=== PATIENT | female | born 1990 | race Caucasian/White ===

== ENCOUNTER 2021-08-01 13:13 | Emergency (ER) | payer MEDICAID, SELFPAY ==
[2021-08-01 13:14] VITALS: BP 140/87; PULSE 86; RESP 16; TEMP 35.7; O2SAT 97; BMI 32.1
--- NOTE | 2021-08-01 14:25 | CT_ITS ---
EXAM: CT ABDOMEN AND PELVIS WITH INTRAVENOUS CONTRAST CLINICAL INDICATION: Bloody stool today, cramping TECHNIQUE: Helically acquired images were obtained of the abdomen and pelvis with intravenous contrast. This CT exam was performed using one or more of the following dose reduction techniques: automated exposure control, adjustment of the mA and/or kV according to patient size, and/or use of iterative reconstruction technique. This report was created using [email or web address] report generation technology. Oral contrast was administered. Coronal and sagittal reformatted images were created and reviewed. CONTRAST: 100 mL Isovue-300 COMPARISON: None. FINDINGS: LOWER THORAX: Unremarkable. Lung bases are clear. No cardiomegaly. No significant pericardial effusion. ABDOMEN: LIVER: Unremarkable. Homogeneous. No focal mass. GALLBLADDER AND BILE DUCTS: Gallbladder is contracted. No calcified gallstones. No gallbladder distention or wall edema. No intra- or extrahepatic biliary ductal dilation. PANCREAS: Unremarkable. No focal cystic or solid mass. SPLEEN: Unremarkable. Normal size without focal cystic or solid mass. ADRENALS: Unremarkable. No nodules. KIDNEYS AND URETERS: Unremarkable. Normal renal size and position. No hydronephrosis. STOMACH AND BOWEL: Unremarkable. No stomach or bowel distention. No focal inflammatory change. PELVIS: APPENDIX: No evidence of acute appendicitis. BLADDER: Unremarkable. REPRODUCTIVE: Fluid within the endometrial canal. ABDOMEN and PELVIS: INTRAPERITONEAL SPACE: Unremarkable. No ascites or other fluid collection. No free air. BONES/JOINTS: Unremarkable. No suspicious lytic or blastic abnormality. SOFT TISSUES: Small fat-containing supraumbilical hernia. VASCULATURE: Unremarkable. Abdominal aorta is non-dilated. LYMPH NODES: Unremarkable. No enlarged lymph nodes. CT/Abdomen/Pelvis WITH Contrast IMPRESSION: No acute inflammatory process or bowel obstruction. No large or small bowel wall thickening. Electronically Signed: Prem Aponte MD ([place]) at 16:18 EDT , Service support ,
--- NOTE | 2021-08-01 14:26 | EDS_ITS ---
HPI History of Present Illness Chief Complaint: GI Bleed Informant: patient Onset/Context/Timing Onset: Today Current Severity: Mild Maximum Severity: Mild Narrative Narrative: Patient presents with 1 month history of diarrhea. She developed diarrhea as well as cold symptoms and was seen at urgent care. She did negative Covid test was placed on an antibiotic. She continues to have diarrhea and today has noted blood in her stool. She has had abdominal cramping. No fever or chills. No urinary symptoms. PFSH PFSH Medical History no medical history no medical history Home Medications ferrous sulfate [Iron] 01/21/17 [History Last Taken 01/20/17 08:00] vit no.[id number] [ Tablet] 01/21/17 [History Last Taken 01/20/17 08:00] naproxen 250 - 500 mg PO Q8H PRN PRN #30 tablet 01/22/17 [Rx Last Taken Unknown] Allergy/AdvReac Type Severity Reaction Status Date / Time No Known Allergies Allergy Verified 08/01/21 13:19 Surgical History no surgical history Social History Smoking Status: Current every day smoker tobacco type: cigarettes ROS ROS ED Constitutional Constitutional ED: Denies chills or fever(s) Eyes Eyes: Denies change in vision ENT ENT ED: Denies sore throat Cardiovascular Cardiovascular: Denies chest pain Respiratory/Chest Respiratory/Chest: Denies cough or dyspnea Gastrointestinal Gastrointestinal: Reports abdominal pain and diarrhea; Denies nausea or vomiting Genitourinary Genitourinary ED: Denies dysuria Musculoskeletal Musculoskeletal: Denies back pain Integumentary Denies rash Neurologic Neurologic: Denies headache(s) or weakness Allergic/Immunologic Allergic/Immunologic ED: Denies urticaria EXAM Physical Exam Const Vital Signs: 08/01/21 13:14 08/01/21 16:03 Temperature 96.2 F L Temperature Source Temporal Pulse Rate 86 Respiratory Rate 16 16 Blood Pressure 140/87 H Blood Pressure Mean 104 Pulse Ox 97 Oxygen Delivery Method Room Air Positive well nourished and well developed General Appearance ED: well developed HEENT Reports normocephalic and head/scalp atraumatic Eyes PERRL and EOMs intact bilaterally Neck supple Chest Wall inspection of chest normal and palpation of chest normal Resp normal respiratory effort and clear to auscultation bilaterally Cardio regular rate and regular rhythm GI non-tender Auscultation: hypoactive bowel sounds Palpation: soft Extremity normal to inspection Neuro oriented x3 and no sensory deficits noted Sensorium / Orientation: alert Motor Exam: strength 5/5 throughout Psych mental status grossly normal Skin no rashes or lesions noted MDM MDM MDM Narrative Medical decision making narrative: Lab work and CT scan of the abdomen pelvis ordered. Lab Data Attestation: I reviewed the patient's lab results. Labs: Laboratory Results - last 24 hr 08/01/21 08/01/21 08/01/21 14:22 14:22 14:22 WBC 10.2 RBC 5.19 Hgb 12.8 Hct 41.2 MCV 79.4 L MCH 24.7 L MCHC 31.1 L RDW Std Deviation 44.4 H RDW Coeff of Jessy 15.5 H Plt Count 452 H MPV 10.3 Immature Gran % (Auto) 0.300 Neut % (Auto) 68.4 Lymph % (Auto) 24.9 [place] % (Auto) 5.3 Eos % (Auto) 0.8 Baso % (Auto) 0.3 Absolute Neuts (auto) 7.0 Absolute Lymphs (auto) 2.53 Nucleated RBC % 0 Sodium 138 Potassium 3.7 Chloride 107 Carbon Dioxide 25.0 Anion Gap 6 BUN 12 Creatinine 0.95 Estim Creat Clear Calc 66.62 Est GFR (MDRD) Af Amer 87 Est GFR (MDRD) Non-Af 72 BUN/Creatinine Ratio 12.6 Glucose 119 H Calcium 9.4 Total Bilirubin 0.30 Direct Bilirubin 0.05 AST 21 ALT 23 Alkaline Phosphatase 66 Total Protein 7.7 Albumin 3.6 Globulin 4.1 Serum , Qual NEGATIVE Radiography Diagnostic Testing: Clinical Impression(s) from Imaging Studies Abdomen/Pelvis CT 08/01/21 14:25 IMPRESSION: No acute inflammatory process or bowel obstruction. No large or small bowel wall thickening. Electronically Signed: Prem Aponte MD ([place]) at 16:18 EDT , Service support , Treatment and Re-Evaluation Comments:: Lab work reviewed with the patient. Labs are unremarkable. CT scan reveals no acute process. Patient did have stool sample while here and this was sent for testing. We will call her if any of these test results require further treatment. I did recommend taking probiotic. She will refer to [facility] for follow-up. Discharge Plan Triage Chief Complaint: GI Bleed ED Provider: Giulia Ayers Dx/Rx/DC Orders Clinical Impression: Diarrhea Instructions: ED Diarrhea, Unknown Cause Prescriptions: No Action vit no.[id number] [ Vitamin] 1 EACH tablet RF: 0 ferrous sulfate [Iron (ferrous sulfate)] 325 MG tablet RF: 0 naproxen 250 MG tablet 250 - 500 mg PO Q8H PRN PRN (Reason: MILD PAIN) Qty: 30 RF: 0 Primary Care Provider: Care Physician,No Primary Referrals: Warner Muñoz DO [STAFF PHYSICIAN] - As soon as possible Care Physician,No Primary [Primary Care Provider] - Disposition Disposition: Home, Self Care
[2021-08-01 14:34] LABS: Absolute Lymphocyte Count 2.53 X10^3/uL (0.83-4.51); Basophil# 0.03 X10^3/uL; Basophil% 0.3 % (0-1); Eosinophil# 0.08 X10^3/uL; Eosinophils% 0.8 % (0-5); Hematocrit 41.2 % (37-47); Hemoglobin 12.8 g/dL (12.0-15.0); Lymphocyte # 2.53 X10^3/ul (0.83-4.51); Lymphocyte % 24.9 % (19-41); Mean Corp Hgb Conc 31.1 g/dL (32-36); Mean Corpuscular Hgb 24.7 pg (27.0-32.0); Mean Corpuscular Volume 79.4 fL (81-99); Mean Platelet Vol. 10.3 fl (6.2-12.0); Monocyte# 0.54 X10^3/uL; Monocyte% 5.3 % (0-10); NRBC Flagged by Analyzer 0 % (0-5); Neutrophil # 6.95 X10^3/uL (2.7-7.7); Neutrophil % 68.4 % (47-70); Platelet Count 452 K/mm3 (150-450); RBC Distribution Width CV 15.5 % (11.6-14.6); RBC Distribution Width SD 44.4 fl (35.1-43.9); Red Blood Count 5.19 M/mm3 (4.2-5.4); White Blood Count 10.2 K/mm3 (4.4-11.0)
[2021-08-01] MEDS: 0.9% Normal Saline 1,000 ML 150 ML IV (14:35)
[2021-08-01 14:43] LABS: Internal QC Validated? YES +Cl - CLEAR BKGD; Pregnancy, Serum, hCG Quali. NEGATIVE Negative
[2021-08-01 14:51] LABS: AST(SGOT) 21 U/L (15-37); Alanine Aminotransfer ALT/SGPT 23 U/L (13-56); Albumin, Serum 3.6 g/dL (3.2-5.0); Alkaline Phosphatase 66 U/L (45-117); Anion Gap 6 (5-15); BUN 12 mg/dL (7-18); BUN/Creat Ratio 12.6 RATIO (10-20); Bilirubin, Direct 0.05 mg/dL (0.00-0.30); Calcium,Total 9.4 mg/dL (8.5-10.1); Chloride 107 mmol/L (98-107); Creatinine, Serum 0.95 mg/dL (0.55-1.02); EST Glomerular Filtration Rate 72 mL/min (>60); Est Glom Filt Rate - Afr Amer 87 mL/min (>60); Estimated Creatinine Clearance 66.62 ml/min; Globulin 4.1 g/dL (2.2-4.2); Glucose 119 mg/dL (74-106); Potassium 3.7 mmol/L (3.5-5.1); Protein, Total 7.7 g/dL (6.4-8.2); Sodium Level 138 mmol/L (136-145)
[2021-08-01 16:03] VITALS: RESP 16
[2021-08-01 17:30] VITALS: BP 123/74; PULSE 81; RESP 16; O2SAT 99
--- NOTE | 2021-08-01 17:31 | ED.RN ---
THIS NURSE REVIEWED D/C INSTRUCTIONS WITH PT AND VISITOR. PT VERBALIZED UNDERSTANDING OF INSTRUCTIONS. IV D/C. IV CATHETER INTACT. PT TOLERATED WELL. PT DENIES FURTHER NEEDS OR QUESTIONS AT THIS TIME.
== END 2021-08-01 17:32 | disposition home or self-care (01) ==
PROVIDERS: Emergency Provider Emergency Medicine
DX: R19.7 Diarrhea, unspecified (principal); R10.9 Unspecified abdominal pain; F17.210 Nicotine dependence, cigarettes, uncomplicated
CPT/HCPCS: 74177; 80048; 80076; 83630; 84703; 85025; 87177; 87209; 87493; 87506; 96360; 96361; 99282; J7030; Q9967; A4216

== ENCOUNTER 2025-03-06 19:21 | Emergency (ER) | payer OTHER, SELFPAY ==
[2025-03-06 19:22] VITALS: BP 141/87; PULSE 73; RESP 18; TEMP 36.6; O2SAT 100; BMI 26.2
--- NOTE | 2025-03-06 19:31 | EDS_ITS ---
HPI History of Present Illness Chief Complaint: Lower Extremity Injury Narrative Narrative: 34-year-old female who denies significant past medical history presents with injury to her left ankle that she sustained approximately 6 hours ago. She is employed as a mail sorting supervisor. As she was getting out of the truck, she stepped on uneven ground and twisted her left ankle. While it caused her to fall and she likely struck her head against the side of the truck on the flat part, she denie s any loss of consciousness, she does not take blood thinners, no neck pain, denies other injuries. She has noticed ankle swelling on the lateral aspect of her left ankle. She was able to walk slightly on it, and has been elevating. She presents for evaluation for the injury to her left ankle that happened at work today. [facility] Medical History Infected dental caries Home Medications ?Medication ?Instructions ?Recorded ?Last Taken ?Type ferrous sulfate 325 mg (65 mg 01/21/17 01/20/17 08:00 History iron) tablet (Iron (ferrous sulfate)) vits no.[id number] fum 01/21/17 01/20/17 08 :00 History 27 mg iron-folic acid 800 mcg tablet ( Vitamin) naproxen 250 mg tablet 250 - 500 mg (1 - 2 x 250 mg ) PO 01/22/17 Unknown Rx Q8H PRN PRN MILD PAIN #30 TABLETS amoxicillin 500 mg tablet 500 mg PO TID #30 tabs 10/03 Unknown Rx chlorhexidine gluconate 0.12 % 15 ml buccal BID #300 m L 10/04/24 Unknown Rx mouthwash (Peridex) Allergy/AdvReac Type Severity Reaction Status Date / Time No Known Allergies Allergy Verified 03/06/25 19:22 Family History no significant family his Social History Smoking Status: Current every day smoker tobacco type: e-cigarettes ROS ROS ED ROS Narrative Review of systems positive for left ankle pain and swelling, swelling mainly on the left lateral aspect. Pain worse with weightbearing and walking. Struck occiput of head but no loss of consciousness, no injury, no neck pain, denies headache, no nausea or vomiting. EXAM Physical Exam Narrative Exam Narrative: GCS 15. ABCs intact. Minimal tenderness to palpation occiput if any, no crepitance. Neck soft and supple without meningismus, no vertebral point tenderness or bony step-off, full range of motion. Able to raise arms above head without difficulty. Cardiovascular examination regular rate and rhythm, lungs are clear to auscultation bilaterally. Abdomen is soft and nontender without guarding or rebound. Neurological examination is nonfocal, nonlateralizing. Alert, oriented x 3. Inspection of the left ankle shows no tenderness to palpation of the fifth metatarsal head. There is diffuse tenderness to palpation of the left lateral malleolus with mild swelling and tenderness in the left talofibular ligament area. No palpable Achilles tendon deficit. No proximal fibular head tenderness. Const Vital Signs: 03/06/25 19:22 Temperature 97.8 F Temperature Source Temporal Pulse Rate 73 Respiratory Rate 18 Blood Pressure 141/87 H Blood Pressure Mean 105 Pulse Ox 100 Oxygen Delivery Method Room Air MDM MDM MDM Narrative Medical decision making narrative: Differential diagnosis includes but not limited to ankle sprain versus fracture. I have low suspicion for [place]uve fracture. While she has a closed head injury, she is almost 6 hours out from her injury and there was no loss of consciousness. I do not feel that she requires imaging of the head or neck based on her clinical examination. She was offered analgesics and ice but she declined. X-rays were obtained of the left ankle and 3 views and interpreted by myself independently. On my independent interpretation of her left ankle x-ray, there is no evidence of an acute fracture but there is soft tissue swelling laterally. I reviewed the radiology report which confirms my independent interpretation. At this point in time, she will be placed in an Aircast and given crutches. As this is a work-related injury, she will have no use of her left lower extremity and no walking duties until cleared by [facility] provider. [facility]. She will take [id number] medications as needed. At this point in time, I feel she can be discharged to follow-up. Return instructions reviewed. Disposition is discharged home in stable condition. History & Record Review Discussion w/independent historian: Patient Radiography Diagnostic Testing: Clinical Impression(s) from Imaging Studies Ankle X-Ray 03/06/25 19:40 IMPRESSION: No acute fracture or dislocation. Mild soft tissue edema about the lateral malleolus. Minimal ankle joint effusion. No radiographic foreign body. Reading Location: [facility] Discharge Plan Triage Chief Complaint: Lower Extremity Injury ED Provider: Moy Liang Dx/Rx/DC Orders Clinical Impression: Left ankle sprain, Fall Instructions: ED Ankle Sprain (Adult) Prescriptions: No Action amoxicillin 500 mg tablet 500 mg PO TID Qty: 30 0RF chlorhexidine gluconate [Peridex] 0.12 % mouthwash 15 ml buccal BID Qty: 300 0RF vit no.[id number] [ Vitamin] 1 EACH tablet ferrous sulfate [Iron (ferrous sulfate)] 325 MG tablet naproxen 250 MG tablet 250 - 500 mg PO Q8H PRN PRN (Reason: MILD PAIN) Qty: 30 0RF Primary Care Provider: Care Physician,No Primary Referrals: [facility] [Provider Group] - 3-5 Days Care Physician,No Primary [Primary Care Provider] - Activity Restrictions/Additional Instructions: Wear Aircast, you may remove for bathing or sleeping. Use crutches to help you ambulate. Follow-up with the [facility] to be cleared back to full work. Ice and elevate left lower extremity when possible. Print Language: Slovak Disposition Disposition: Home, Self Care
--- NOTE | 2025-03-06 19:40 | RAD_ITS ---
PROCEDURE: ANKLE MIN 3 VIEWS 03/06/2025 REASON FOR EXAM: TRAUMA TECHNIQUE: 3 views of the left ankle COMPARISON: None RAD/Ankle min 3 Views IMPRESSION: No acute fracture or dislocation. Mild soft tissue edema about the lateral mal leolus. Minimal ankle joint effusion. No radiographic foreign body. Reading Location: [id number]
[2025-03-06 20:48] VITALS: BP 141/87; PULSE 73; RESP 18; TEMP 36.6; O2SAT 100
== END 2025-03-06 20:49 | disposition home or self-care (01) ==
PROVIDERS: Emergency Provider Emergency Medicine; Visit Provider Emergency Medicine
DX: S93.402A Sprain of unspecified ligament of left ankle, initial encounter (principal); S09.90XA Unspecified injury of head, initial encounter; V58.4XXA Person boarding or alighting a pick-up truck or van injured in noncollision transport accident, initial encounter; X50.1XXA Overexertion from prolonged static or awkward postures, initial encounter; Y92.812 Truck as the place of occurrence of the external cause; Y99.0 Civilian activity done for income or pay; F17.290 Nicotine dependence, other tobacco product, uncomplicated
CPT/HCPCS: 73610; 99284